=== PATIENT | male | born 1965 | race African-American/Black ===

== ENCOUNTER → 2019-05-31 | Outpatient (CLI) | payer BC ==
--- NOTE | 2019-05-31 14:41 | Diagnostic Imaging Report ---
INDICATION: Knee Pain COMPARISON: None 3 views of the left knee were obtained. FINDINGS: No acute fracture or malalignment identified. There is opacification of the suprapatellar region. Soft tissues are unremarkable. IMPRESSION: Joint effusion.
== END | disposition home or self-care (01) ==
LOC: RAD 12:36
DX: M25.562 Pain in left knee (principal)